=== PATIENT | male | born 1985 | race Caucasian/White ===

== ENCOUNTER 2017-11-16 18:02 | Emergency (ER) | payer BC, OTHER ==
[2017-11-16 18:18] VITALS: BP 135/79; PULSE 59; RESP 18; TEMP 97.7; O2SAT 100
--- NOTE | 2017-11-16 19:11 | EDPHY ---
H & P Stated Complaint: LEFT SIDED GLUTEAL PAIN SINCE 11/14 HPI/ROS: CHIEF COMPLAINT: Gluteal pain HISTORY OF PRESENT ILLNESS: This is a 32-year-old male with 2 days of left gluteal pain. He has had low back pain in the past that has been treated with anti-inflammatory medication, prednisone, and an injection. He recently developed pain in the left gluteal region that radiates into the left hip and down the back of his left leg. It is worse with sitting. No preceding event or trauma. He denies numbness, weakness, and bowel or bladder problems. He saw his primary care physician he thought that he had bursitis and recommended meloxicam in lidocaine patch as--both of which she has used. Today saw chiropractor, but obtained no relief. He presents this evening with persistent pain. REVIEW OF SYSTEMS: A ten point review of systems was performed and is negative with the exception of the items mentioned in the HPI. Past medical history: VSD Past surgical history: Cardiac surgery as an Social history: He works for [employer]. He is . No tobacco. General Appearance: Alert. Vital signs reviewed. Initial blood pressure 135/ 79. He is standing at the bedside, as it is uncomfortable to sit. Respiratory: Lungs are clear to auscultation; no wheezes, rales, or rhonchi. Cardiovascular: Regular rate and rhythm; no murmur, rub, or gallop. Gastrointestinal: Abdomen is soft and nontender. Skin: Warm and dry, no rashes on exposed skin, normal color. Back: Nontender to palpation over the thoracolumbar spine. No CVAT. No tenderness palpation her sciatic notch. Extremities: No lower extremity edema, no calf tenderness or swelling. No pain with range of motion of the left hip. No tenderness with palpation of the left hip. Neurological: Alert and oriented. Moving all four extremities easily and equally. Strength is 5 over 5 bilaterally with testing of all major motor groups in both lower extremities. Sensation is intact to light touch over both lower extremities. Deep tendon reflexes are 2+ in the knees and ankle bilaterally. Gait is normal. He is able to walk on his toes and heel walk. Psychiatric: Normal affect. - Personal History Current Tetanus Diphtheria and Acellular Pertussis (TDAP): Yes Tetanus Vaccine Date: 02/18/15 - Medical/Surgical History Hx Asthma: No Hx Chronic Respiratory Disease: No Hx Diabetes: No Hx Cardiac Disease: Yes Hx Renal Disease: No Hx Cirrhosis: No Hx Alcoholism: No Hx HIV/AIDS: No Hx Splenectomy or Spleen Trauma: No Other PMH: Irregular Heart Beat. Migraines. VSD, COARC Aorta repair as . Vocal Cord Surg - Social History Smoking Status: Never smoked Constitutional: Initial Vital Signs Temperature (C) 36.5 C 11/16/17 18:16 Heart Rate 59 L 11/16/17 18:16 Respiratory Rate 18 11/16/17 18:16 Blood Pressure 135/79 H 11/16/17 18:16 O2 Sat (%) 100 11/16/17 18:16 O2 Delivery Mode Room Air Allergies/Adverse Reactions: codeine Allergy (Verified 02/18/15 08:10) Home Medications: Medication Instructions Recorded Aspirin 09/12/14 Maxalt 09/12/14 Verapamil 09/12/14 Mupirocin 2% [Bactroban 2%] 1 hellen TP BID #1 tube 02/18/15 Sulfamethox/Tmp 800/160 mg 1 tab PO BID #14 tab 02/18/15 [Bactrim Ds] Hydrocodone/APAP 5/325 [Bradley 1 - 2 tab PO Q4 PRN #15 tab 11/16/17 5/325 (RX)] Lidocaine 5% [Lidoderm 5% Patch 1 ea TD DAILY #12 patch 11/16/17 (*)] predniSONE 20 mg PO BID #10 tablet 11/16/17 Medical Decision Making ED Course/Re-evaluation: Based upon the history and physical I think this is more likely to be sciatica than a hip problem, although there would not entirely rule out the hip as etiology of his pain. He has normal neurologic exam. I do not recommend imaging at this time. I am recommending prednisone, 5% lidocaine patches, and Vicodin p.r.n.. He has used muscle relaxants in the past without relief. I am referring him to [facility] [place] and her primary care physician. I am also referring him to a manager provider relations , at his request. Differential Diagnosis: Back pain including but not limited to muscular pain, herniated disc, spine fracture, intra-abdominal causes and urinary tract infection. Departure - Departure Disposition: Home, Routine, Self-Care Clinical Impression: Sciatica Qualifiers: Laterality: left Qualified Code(s): M54.32 - Sciatica, left side Condition: Good Instructions: Sciatica (ED), Lumbar Radiculopathy (ED), Piriformis Syndrome (ED ) Additional Instructions: As we discussed, I think this is likely to be sciatica. However, there are other possible etiologies for your pain such as piriformis syndrome or pain from your hip. I am giving you some information on piriformis syndrome. The treatments are essentially the same initially. I am prescribing 5% lidocaine patches. I am also prescribing Vicodin to use for severe pain when needed. This is an opioid, so avoid any potentially dangerous activities if you take this medication. It has the potential for addiction. It also contains Tylenol, 325 mg in each pill. Do not take more than 3000 mg of Tylenol in a single 24 hr time period. Take the prednisone as prescribed. I recommend taking an [id number] antacid medication, such as Tagamet or Pepcid, as long as you are taking the prednisone. Follow the instructions on the packaging. I am referring you to Dr. Melendez for primary care. I am referring you to Dr. darrick patten for Cardiology. It is fine to see any physician in that practice. I am referring you to Dr. Cotter from [facility]. You should call tomorrow to set up a follow-up appointment with them. Referrals: Gino Melendez DO [Medical Doctor] - As per Instructions Jona Cotter MD [Medical Doctor] - As per Instructions Ranjith Nicole MD [Medical Doctor] - As per Instructions Prescriptions: Hydrocodone/APAP 5/325 [Bradley 5/325 (RX)] 1 - 2 tab PO Q4 PRN #15 tab PRN Reason: pain Lidocaine 5% [Lidoderm 5% Patch (*)] 1 ea TD DAILY #12 patch predniSONE 20 mg PO BID #10 tablet
== END 2017-11-16 19:29 | disposition home or self-care (01) ==
LOC: CED 18:02
DX: M54.32 Sciatica, left side (principal); Z79.82 Long term (current) use of aspirin

== ENCOUNTER → 2019-02-20 | Outpatient (CLI) | payer OTHER | LOC: EMCIMAGING 08:18 | PROVIDERS: ATTEND Internal Medicine Cardiovascular Disease | DX: Z00.00 Encounter for general adult medical examination without abnormal findings (principal); I45.10 Unspecified right bundle-branch block; Z87.74 Personal history of (corrected) congenital malformations of heart and circulatory system ==